=== PATIENT | male | born 1960 | race Caucasian/White ===

== ENCOUNTER 2019-11-29 20:00 | Outpatient (CLI) | payer MEDICAID, SELFPAY | END 2019-11-29 20:01 | disposition home or self-care (01) | LOC: SLEEP 11-30 08:45 | PROVIDERS: Family Provider Family Medicine; Visit Provider Family Medicine | DX: G47.33 Obstructive sleep apnea (adult) (pediatric) (principal) | CPT/HCPCS: 95810; 95811 ==

== ENCOUNTER 2021-07-24 15:40 | Outpatient (CLI) | payer MEDICAID, SELFPAY ==
[2021-07-24 16:53] LABS: Testosterone Total 7.7 ng/dL (193-740)
== END 2021-07-24 15:41 | disposition home or self-care (01) ==
PROVIDERS: Visit Provider Nurse Practitioner Family
DX: Z86.39 Personal history of other endocrine, nutritional and metabolic disease (principal)
CPT/HCPCS: 36415; 84403

== ENCOUNTER 2021-08-13 02:26 | Emergency (ER) | payer MEDICAID, SELFPAY ==
[2021-08-13 02:35] VITALS: BP 133/86; PULSE 93; RESP 15; TEMP 36.8; O2SAT 95; BMI 28.8
--- NOTE | 2021-08-13 02:57 | W.ED.ABDPA2 ---
HPI - Abdominal Pain General: Chief Complaint: Abdominal Pain Stated Complaint: N\V Multi Pain Time Seen by Provider: 08/13/21 02:30 Source: patient Mode of arrival: ambulatory Limitations: no limitations History of Present Illness: HPI narrative: 61-year-old male who has a history of chronic pain. He states that he had been seeing his chronic pain physician in [place] for years when he retired this month. He states he just ran out of his Dilaudid methadone he started to have increasing pain. He states that his abdominal pain along with muscle aches. He states this is consistent with his chronic pain he has had for years. Denies any vomiting denies any worsening improving factors. He has no signs of withdrawals. Associated Symptoms: Denies chills, dysuria and fever(s) Review of Systems Const: Denies: fever(s), chills, body aches or change in appetite Eyes: Denies: blurry vision or eye discomfort ENMT: Denies: throat pain or dental pain Card: Denies: chest pain Resp: Denies: dyspnea GI: Reports: abdominal pain : Denies: dysuria Musc: Denies: neck pain or back pain Skin/Breast: Denies: rash Neuro: Denies: headache(s) Psych: Denies: depression Cj/Lymph: Denies: easy bruising All/Imm: Denies: urticaria Physical Exam Const: COMMON NORMALS: no acute distress, patient oriented x3 and healthy appearing HENMT: COMMON NORMALS: normocephalic and atraumatic HEAD & SCALP: normocephalic and atraumatic Eye: COMMON NORMALS: Equal, round and reactive pupils present and EOMs intact bilaterally PUPIL: Yes Equal, round and reactive pupils present Neck/C-Spine: COMMON NORMALS: full ROM and supple Chest: COMMONS NORMALS: normal inspection of the chest and normal palpation of entire chest wall Resp: COMMON NORMALS: normal respiratory effort, No retractions, No use of accessory muscles and clear to auscultation bilaterally AUSCULTATION: clear to auscultation bilaterally Cardio: COMMON NORMALS: regular rate, regular rhythm and No murmurs present (Cardio) RATE: regular rate RHYTHM: regular rhythm GI: COMMON NORMALS: Normal to inspection, nondistended, normoactive bowel sounds present, Soft to palpation, non-tender and no masses PALPATION: Yes Soft to palpation Extremity: COMMON NORMALS: normal to inspection and full ROM Neuro: COMMON NORMALS: patient oriented x3, moves all extremities and no focal motor deficits Psych: COMMON NORMALS: mental status grossly normal, Normal thought process present and cooperative THOUGHT PROCESS: Normal thought process present Skin: COMMON NORMALS: no rashes or lesions noted and no wounds GENERAL SKIN EXAM: no rashes or lesions noted Course Vital Signs: Vital signs: Vital Signs Temperature 98.3 F 08/13/21 02:35 Pulse Rate 102 H 08/13/21 03:23 Respiratory Rate 15 08/13/21 03:23 Blood Pressure 152/86 08/13/21 03:23 Pulse Oximetry 95 08/13/21 03:23 MDM - Abdominal Pain MDM Narrative: Medical decision making narrative: Patient presents with chronic pain and is out of his chronic pain meds due to his physician retiring. Patient is well-appearing here and has no signs of chronic pain abdominal exam is benign he has no signs of acute surgical abdomen. We will give him hydrocodone prescription as he is supposed to follow-up with a new pain specialist next week. He is return if worsening he understands agrees to plan. Lab Data: Labs: Lab Results 08/13/21 08/13/21 03:22 03:22 WBC 11.0 10^3/uL H 10 ^3/uL (4.0-10.0) RBC 5.24 10^6/uL 10^6 /uL (4.1-5.3) Hgb 16.5 g/dL g/dL (11.7-16.6) Hct 47.5 % % (42.0-52.0) MCV 90.6 fl fl (80-94) MCH 31.5 pg pg (28.0-34.0) MCHC 34.7 g/dL g/dL (30.0-36.0) RDW 12.3 % % (12.1-15.1) Plt Count 219 10^3/cmm 10^3 /cmm (130-400) MPV 11.0 fL H fL (7.4-10.4) Neut % (Auto) 67.4 % % Lymph % (Auto) 17.7 % % [place] % (Auto) 11.7 % % Eos % (Auto) 2.2 % % Baso % (Auto) 0.6 % % Neut # (Auto) 7.44 10^3/uL 10^3 /uL (1.8-7.7) Lymph # (Auto) 2.0 10^3/uL 10^3/ uL (0.8-4.8) [place] # (Auto) 1.3 10^3/uL H 10^ 3/uL (0.2-0.9) Eos # (Auto) 0.2 10^3/uL 10^3/ uL (0.0-0.8) Baso # (Auto) 0.1 10^3/uL 10^3/ uL (0.0-0.1) Nucleated RBC % (a uto) 0 % % Nucleated RBCs # 0.0 /100WBC /100W BC Sodium 136 mmol/L mmol/L (136-145) Potassium 3.9 mmol/L mmol/L (3.5-5.1) Chloride 100 mmol/L mmol/L (98-107) Carbon Dioxide 25 mmol/L mmol/L (22-29) Anion Gap 14.9 (5-19) BUN 12 mg/dL mg/dL (8-23) Creatinine 0.6 mg/dL L mg/dL (0.7-1.2) GFR Calculation 137.0 mL/min H mL /min (90-130) Glucose 114 mg/dL mg/dL (65-115) Calculated Osmolal ity 283 mOsm/kg L mOs m/kg (285-295) Calcium 9.4 mg/dL mg/dL (8.5-10.5) Total Bilirubin 0.7 mg/dL mg/dL (0.15-1.2) AST 69 U/L H U/L (0-40) ALT 78 U/L H U/L (0-41) Alkaline Phosphata se 90 IU/L IU/L (40-130) Total Protein 8.1 g/dL g/dL (6.6-8.7) Albumin 4.4 g/dL g/dL (3.5-5.2) Globulin 3.7 g/dL g/dL (1.3-4.6) Lipase 51 U/L U/L (13-60) Discharge Plan Discharge Patient Disposition: Home Clinical Impression: Chronic pain Abdominal pain Qualifiers: Abdominal location: generalized Qualified Code(s): R10.84 - Generalized abdominal pain Condition: Stable Prescriptions: New hydrocodone-acetaminophen 5-325 mg tablet 1 tab PO Q6H PRN (Reason: pain) Qty: 14 RF: 0 ondansetron 4 mg tablet,disintegrating 4 mg PO Q6H PRN (Reason: nausea and vomiting) Qty: 14 RF: 0 Discharge Orders: Discharge ED (Routine); Ordered 08/13/21 Ordered By: Beatris Andersen Discharge Diet: Advance as tolerated Discharge Activity: Resume usual activity Patient Instructions: Chronic Pain (ED), Abdominal Pain (ED), Opioid Safety Coding Level of Care Code ED [employer] Fwd Exam Comprehensive
[2021-08-13 03:23] VITALS: BP 152/86; PULSE 102; RESP 15; O2SAT 95
[2021-08-13] MEDS: ondansetron 2 mg/ML SDV 2 mL 4 MG IVP (03:23)
[2021-08-13 03:30] LABS: Basophils # 0.1 10^3/uL (0.0-0.1); Basophils % 0.6 %; Eosinophils # 0.2 10^3/uL (0.0-0.8); Eosinophils % 2.2 %; Hematocrit 47.5 % (42.0-52.0); Hemoglobin 16.5 g/dL (11.7-16.6); Lymphocytes % 17.7 %; Mean Corpuscular HGB Conc 34.7 g/dL (30.0-36.0); Mean Corpuscular Hemoglobin 31.5 pg (28.0-34.0); Mean Corpuscular Volume 90.6 fl (80-94); Monocytes # 1.3 10^3/uL (0.2-0.9); Monocytes % 11.7 %; Neutrophils # 7.44 10^3/uL (1.8-7.7); Neutrophils % 67.4 %; Nucleated Red Blood Cells % 0 %; Platelet Count 219 10^3/cmm (130-400); Red Blood Count 5.24 10^6/uL (4.1-5.3); Red Cell Distribution Width 12.3 % (12.1-15.1)
[2021-08-13 03:46] LABS: Alanine Aminotransferase 78 U/L (0-41); Albumin Level 4.4 g/dL (3.5-5.2); Alkaline Phosphatase 90 IU/L (40-130); Anion Gap 14.9 (5-19); Aspartate Amino Transferase 69 U/L (0-40); Blood Urea Nitrogen 12 mg/dL (8-23); Calcium 9.4 mg/dL (8.5-10.5); Carbon Dioxide 25 mmol/L (22-29); Chloride 100 mmol/L (98-107); Globulin 3.7 g/dL (1.3-4.6); Glucose 114 mg/dL (65-115); Lipase 51 U/L (13-60); Osmolality Calculated 283 mOsm/kg (285-295); Potassium 3.9 mmol/L (3.5-5.1); Sodium 136 mmol/L (136-145); Total Bilirubin 0.7 mg/dL (0.15-1.2); Total Protein 8.1 g/dL (6.6-8.7)
[2021-08-13] MEDS: HYDROcodone-acetaminophen 7.5-325 mg Tablet 1 TAB PO (03:52)
[2021-08-13 03:56] VITALS: BP 145/71; PULSE 98; RESP 15; O2SAT 95
== END 2021-08-13 03:57 | disposition home or self-care (01) ==
PROVIDERS: Emergency Provider Emergency Medicine
DX: R10.84 Generalized abdominal pain (principal); G89.29 Other chronic pain
CPT/HCPCS: 80053; 83690; 85025; 96374; 99283; J2405

== ENCOUNTER 2021-10-27 13:02 | Outpatient (CLI) | payer MEDICAID, SELFPAY ==
--- NOTE | 2021-10-27 13:10 | XR_ITS ---
WS: [id number] LATERAL LUMBAR SPINE: 3 view. Lateral radiographs are performed in upright neutral, flexion and extension to the patient's toleranc e. HISTORY: VERTEBROGENIC LOW BACK PAIN COMPARISON: No similar studies. L4 retrolisthesis by 3 mm with no significant change during flexion or extension. There is very sligh t retrolisthesis of L2 and L3 with no instability. Disc spaces are slightly narrowed throughout the l umbar spine with small vertebral body endplate osteophytes. Facet joint arthritis is mild at L4-5 and L5-S1. XR/XR lumbar spine f/e only [id number] IMPRESSION: 1. No lumbar spine instability. 2. 3 mm retrolisthesis of L3 with no instability.
--- NOTE | 2021-10-27 13:11 | CT_ITS ---
WS: [id number] CT LUMBAR SPINE, noncontrast. HISTORY: VERTEBROGENIC LOW BACK PAIN TECHNIQUE: Contiguous 2.5 mm axial imaging are performed. Sagittal and coronal reformats are submitte d and reviewed. All CT scans at [facility] use at least one of these dose optimization techni ques: automated exposure control; mA and/or kV adjustment per patient size (includes targeted exams w here dose is matched to clinical indication); or iterative reconstruction. IV contrast: None DLP: 1768.62 mGycm COMPARISON: No similar studies. Very mild straightening and LEFT curvature of the lumbar spine. Asymmetric disc space narrowing throu ghout the lumbar spine, most significant at L3-4. No fractures. Small endplate osteophytes at all lev els. Vacuum disc phenomenon from L2-3 to L5-S1. Schmorl's nodes at L3 and L4. L1-2: Mild disc bulging with no stenosis. L2-3: Moderate diffuse annular disc bulging with mild contact on the ventral thecal sac. Mild encroac hment into the subarticular recesses. No significant stenosis. L3-4: Moderate annular disc bulging with no focal disc protrusion. Encroachment upon the ventral thec al sac with narrowing of the subarticular recesses. Mild foraminal narrowing. L4-5: Moderate diffuse annular disc bulging. Mild ligamentum flavum hypertrophy and facet arthritis. Effacement of the ventral thecal sac. There is mild central, bilateral subarticular recess and forami nal stenosis. L5-S1: Mild annular disc bulging with osteophytic ridging. Moderate bilateral foraminal stenosis due to combination of disc disease and osteophytes. Mild central and bilateral subarticular recess stenos is. Mild atherosclerosis aorta. CT/CT lumbar spine wo con* [id number] IMPRESSION: 1. Moderate spondylitic changes with asymmetric disc space narrowing greatest at L3-4. 2. Moderate bilateral foraminal stenosis at L5-S1 due to disc and osteophyte d isease. There is also mild central and bilateral subarticular recess stenosis. 3. Mild central, bilateral subarticular recess and foraminal stenosis at L4-5. 4. Mild foraminal stenosis at L3-4.
== END 2021-10-27 13:03 | disposition home or self-care (01) ==
PROVIDERS: Visit Provider Nurse Practitioner
DX: M54.51 Vertebrogenic low back pain (principal); M48.061 Spinal stenosis, lumbar region without neurogenic claudication; M48.07 Spinal stenosis, lumbosacral region
CPT/HCPCS: 72120; 72131